=== PATIENT | male | born 1975 | race Caucasian/White ===

== ENCOUNTER 2018-08-27 18:33 | Inpatient (IN) | payer BC, OTHER ==
[~2018-08-27] VITALS: Ht 177.8 cm; Wt 129.6 kg
[2018-08-27 19:55] LABS: BASO # 0.1 10^3/uL (0.0-0.2); BASO % 0.9 % (0.0-1.0); EOS # 0.3 10^3/uL (0.0-0.50); EOS % 3.8 % (0.0-3.0); HEMATOCRIT 44.5 % (42.0-52.0); HEMOGLOBIN 15.6 g/dl (13.5-17.5); LYMPH # 2.4 10^3/uL (1.5-4.5); LYMPH % 28.6 % (24.0-44.0); MEAN CORPUSCULAR HEMOGLOBIN 32.2 pg (27.0-33.0); MEAN CORPUSCULAR HGB CONC 35.1 g/dl (32.0-36.5); MEAN CORPUSCULAR VOLUME 91.9 fl (80.0-96.0); MONO # 1.1 10^3/uL (0.0-0.8); MONO % 13.2 % (0.0-5.0); NEUTROPHILS # 4.4 10^3/uL (1.8-7.7); NEUTROPHILS % 52.9 % (36.0-66.0); PLATELET COUNT, AUTOMATED 309 10^3/uL (150-450); RED BLOOD COUNT 4.84 10^6/uL (4.30-6.10); WHITE BLOOD COUNT 8.2 10^3/uL (4.0-10.0)
[2018-08-27 20:10] LABS: BLOOD UREA NITROGEN 15 MG/DL (7-18); CALCIUM LEVEL 9.2 MG/DL (8.5-10.1); CARBON DIOXIDE LEVEL 26 MEQ/L (21-32); CHLORIDE LEVEL 108 MEQ/L (98-107); CREATININE FOR GFR 0.95 MG/DL (0.70-1.30); GLOMERULAR FILTRATION RATE > 60.0 (>60); GLUCOSE, FASTING 109 MG/DL (70-100); INR 0.91; POTASSIUM SERUM 4.2 MEQ/L (3.5-5.1); PROTHROMBIN TIME 12.4 SECONDS (12.1-14.4); SODIUM LEVEL 142 MEQ/L (136-145)
[2018-08-27] MEDS ORDERED: ISOVUE-370 76% 100ML VIAL (Q9967) As Ordered ONE (21:51)
[2018-08-27 21:57] LABS: C REACTIVE PROTEIN QUANTITATIV 1.96 MG/DL (0.00-0.30)
[2018-08-27 22:24] LABS: ERYTHROCYTE SEDIMENTATION RATE 8 mm/hr (0-15)
--- NOTE | 2018-08-27 23:34 | REPVR ---
EXAM: CT Abdomen and Pelvis With Contrast EXAM DATE/TIME: 08/27/2018 10:38 PM CLINICAL HISTORY: 43 years old, male; Abdominal pain; Localized; Left; Additional info: Left sided abdominal pain; Diverticulitis vs colitis TECHNIQUE: Imaging protocol: Axial computed tomography images of the abdomen and pelvis with intravenous contrast. Coronal and sagittal reformatted images were created and reviewed. Radiation optimization: All CT scans at this facility use at least one of these dose optimization techniques: automated exposure control; mA and/or kV adjustment per patient size (includes targeted exams where dose is matched to clinical indication); or iterative reconstruction. Contrast material: ISOVUE 370; Contrast volume: 100 ml; Contrast route: IV; COMPARISON: No relevant prior studies available. FINDINGS: ABDOMEN: Liver: Normal. No mass. Gallbladder and bile ducts: Normal. No calcified stones. No ductal dilation. Pancreas: Normal. No ductal dilation. Spleen: Normal. No splenomegaly. Adrenals: Normal. No mass. Kidneys and ureters: Normal. No hydronephrosis. Stomach and bowel: Colonic diverticulosis without diverticulitis. Moderate stool in the colon. No abnormal bowel dilatation. No abnormal bowel wall thickening. Appendix: Appendix is normal. PELVIS: Bladder: Unremarkable as visualized. Reproductive: Prostate is normal in size. ABDOMEN and PELVIS: Intraperitoneal space: Normal. No free air. No significant fluid collection. Bones/joints: No acute fracture. No dislocation. Soft tissues: Small bilateral inguinal hernias containing fat. No evidence of incarceration. Vasculature: Normal. No abdominal aortic aneurysm. Lymph nodes: Normal. No enlarged lymph nodes. IMPRESSION: 1. No CT findings to suggest source of left abdominal pain. 2. Colonic diverticulosis without diverticulitis. 3. Small bilateral inguinal hernias containing fat. Electronically signed by: Jazmine Rodriguez On 08/27/2018 23:34:07 PM
[2018-08-28 00:11] LABS: BASO # 0.1 10^3/uL (0.0-0.2); BASO % 0.8 % (0.0-1.0); EOS # 0.2 10^3/uL (0.0-0.50); EOS % 2.1 % (0.0-3.0); HEMATOCRIT 41.6 % (42.0-52.0); HEMOGLOBIN 14.4 g/dl (13.5-17.5); LYMPH # 2.3 10^3/uL (1.5-4.5); LYMPH % 27.4 % (24.0-44.0); MEAN CORPUSCULAR HEMOGLOBIN 32.1 pg (27.0-33.0); MEAN CORPUSCULAR HGB CONC 34.6 g/dl (32.0-36.5); MEAN CORPUSCULAR VOLUME 92.9 fl (80.0-96.0); MONO % 12.4 % (0.0-5.0); NEUTROPHILS # 4.7 10^3/uL (1.8-7.7); NEUTROPHILS % 56.5 % (36.0-66.0); PLATELET COUNT, AUTOMATED 284 10^3/uL (150-450); RED BLOOD COUNT 4.48 10^6/uL (4.30-6.10); WHITE BLOOD COUNT 8.4 10^3/uL (4.0-10.0)
[2018-08-28] MEDS ORDERED: ALEV220T22 PO (01:30)
--- NOTE | 2018-08-28 01:54 | HPEPDOC ---
[facility] Medical History & Physical Date of Admission Aug 28, 2018 Date of Service: Aug 28, 2018 Attending Physician: A History and Physical CHIEF COMPLAINT: GI bleed HISTORY OF PRESENT ILLNESS: Patient is a 43-year-old male with no significant past medical history presented to ER with complaints of bright red blood per rectum. He noted noticing a significant amount of blood with bowel movement since 4 PM yesterday evening and came into the ER. He has no prior history of rectal/gi bleed prior and is generally healthy. He denies any abdominal pain, nausea, vomiting or any associated symptoms. He took 2 aleve x2 today for headache but otherwise nothing out of the ordinary. He has taken medication for occasional illness/headaches in the past without any problems. He was FOBT+ in ER and also noted to have several episodes for further BRBPR. PAST MEDICAL HISTORY: Refer to [facility] PAST SURGICAL HISTORY: None SOCIAL HISTORY: Denies tobacco, alcohol or illicit drug use. FAMILY HISTORY: Mother has emphysema ALLERGIES: Please see below. REVIEW OF SYSTEMS: 10 point review of system negative except as stated in [facility] HOME MEDICATIONS: Please see below. PHYSICAL EXAMINATION: General: No acute distress, Alert Eyes: Normal sclera, EOMI, ARIAS HENT: Atraumatic, neck supple, moist mucous membranes Cardiovascular: Normal rate, normal rhythm. No murmurs appreciated. Pulmonary: Clear to auscultation b/l, no wheezing GI: Soft, nontender, nondistended Skin: Warm and dry Neuro: CN grossly intact. No focal deficits. Strengths equal b/l. Psych: oriented x 3 LABORATORY DATA: See below. MICROBIOLOGY: Please see below. ASSESSMENT AND PLAN: 1. GI Bleed - Suspected NSAID induce as patient has no other known etiology. - Type and screen. - Monitor H/H serial. - Patient is asymptomatic and H/H is relatively stable. Transfuse if needed. - GI consulted, to see in AM. - Patient is made NPO at this time. - Protonix BID. DVT ppx: SCD only due to bleed Code status: Full code Vital Signs Vital Signs Date Time Temp Pulse Resp B/P (MAP) Pulse Ox O2 Delivery O2 Flow Rate FiO2 08/27/18 21:06 100 149/92 (111) 08/27/18 20:38 Room Air 08/27/18 18:33 98.3 18 95 Laboratory Data Labs 24H Laboratory Tests 2 08/27/18 19:43: Immature Granulocyte % (Auto) 0.6, White Blood Count 8.2, Red Blood Count 4.84, Hemoglobin 15.6, Hematocrit 44.5, Mean Corpuscular Volume 91.9, Mean Corpuscular Hemoglobin 32.2, Mean Corpuscular Hemoglobin Concent 35.1, Red Cell Distribution Width 11.5, Platelet Count 309, Neutrophils (%) (Auto) 52.9, Lymphocytes (%) (Auto) 28.6, Monocytes (%) (Auto) 13.2H, Eosinophils (%) (Auto) 3.8H, Basophils (%) (Auto) 0.9, Neutrophils # (Auto) 4.4, Lymphocytes # (Auto) 2.4, Monocytes # (Auto) 1.1H, Eosinophils # (Auto) 0.3, Basophils # (Auto) 0.1, Nucleated Red Blood Cells % (auto) 0.0, Erythrocyte Sedimentation Rate 8, Prothrombin Time 12.4, Prothromb Time International Ratio 0.91, Anion Gap 8, Glomerular Filtration Rate > 60.0, Blood Urea Nitrogen 15, Creatinine 0.95, Sodium Level 142, Potassium Level 4.2, Chloride Level 108H, Carbon Dioxide Level 26, Calcium Level 9.2, C-Reactive Protein, Quantitative 1.96H 08/28/18 00:00: Immature Granulocyte % (Auto) 0.8, White Blood Count 8.4, Red Blood Count 4.48, Hemoglobin 14.4, Hematocrit 41.6L, Mean Corpuscular Volume 92.9, Mean Corpuscular Hemoglobin 32.1, Mean Corpuscular Hemoglobin Concent 34.6, Red Cell Distribution Width 11.6, Platelet Count 284, Neutrophils (%) (Auto) 56.5, Lymphocytes (%) (Auto) 27.4, Monocytes (%) (Auto) 12.4H, Eosinophils (%) (Auto) 2.1, Basophils (%) (Auto) 0.8, Neutrophils # (Auto) 4.7, Lymphocytes # (Auto) 2.3, Monocytes # (Auto) 1.0H, Eosinophils # (Auto) 0.2, Basophils # (Auto) 0.1, Nucleated Red Blood Cells % (auto) 0.0 CBC/BMP Laboratory Tests 08/27/18 19:43 Red Blood Count 4.84, Mean Corpuscular Volume 91.9, Mean Corpuscular Hemoglobin 32.2, Mean Corpuscular Hemoglobin Concent 35.1, Red Cell Distribution Width 11.5, Neutrophils (%) (Auto) 52.9, Lymphocytes (%) (Auto) 28.6, Monocytes (%) (Auto) 13.2 H, Eosinophils (%) (Auto) 3.8 H, Basophils (%) (Auto) 0.9, Neutrophils # (Auto) 4.4, Lymphocytes # (Auto) 2.4, Monocytes # (Auto) 1.1 H, Eosinophils # (Auto) 0.3, Basophils # (Auto) 0.1, Calcium Level 9.2 08/28/18 00:00 Red Blood Count 4.48, Mean Corpuscular Volume 92.9, Mean Corpuscular Hemoglobin 32.1, Mean Corpuscular Hemoglobin Concent 34.6, Red Cell Distribution Width 11.6, Neutrophils (%) (Auto) 56.5, Lymphocytes (%) (Auto) 27.4, Monocytes (%) (Auto) 12.4 H, Eosinophils (%) (Auto) 2.1, Basophils (%) (Auto) 0.8, Neutrophils # (Auto) 4.7, Lymphocytes # (Auto) 2.3, Monocytes # (Auto) 1.0 H, Eosinophils # (Auto) 0.2, Basophils # (Auto) 0.1 Microbiology Microbiology 08/27/18 Gastrointestinal Tract Panel (PCR) - Final, Complete Home Medications Scheduled PRN Naproxen Sodium (Aleve) 220 Mg Tablet, 440 MG PO BID PRN for PAIN Allergies Coded Allergies: No Known Allergies (Unverified , 08/27/18) A-FIB/CHADSVASC A-FIB History Current/History of A-Fib/PAF?: No FIDEL HOWELL MD Aug 28, 2018 01:54
[2018-08-28 02:30] VITALS: BP 130/81
[2018-08-28] MEDS: PANTOPRAZOLE 40MG INJ (PROTONIX) (C9113) IV SCH ×3 (02:50→20:23)
[2018-08-28] MEDS: NS 1,000 ML IV SCH ×2 (02:50→15:45)
[2018-08-28 06:00] VITALS: BP 135/83
[2018-08-28] MEDS ORDERED: MOM 30ML SUSPENSION UDC PO ONE (09:15)
[2018-08-28 10:00] VITALS: BP 145/85
--- NOTE | 2018-08-28 11:20 | IPNPDOC ---
Date Seen The patient was seen on 08/28/18. Progress Note SUBJECTIVE: Patient is a 43-yo male with no significant past medical history who presented to the ER with complaints of bright red blood per rectum. He noted noticing a significant amount of blood with bowel movements since 4:00 pm on 08.27.18 and came into the ER. He has no prior history of rectal/GI bleed prior and is generally healthy. He denies any cp, sob, palpitations abdominal pain, nausea, vomiting or any associated symptoms. He took 2 Aleve x2 on 08.27.18 for headaches but otherwise nothing out of the ordinary. He has taken medication for occasional illness/headaches in the past without any problems. He was FOBT+ in ER and also noted to have several episodes of further BRBPR. Pt hasn't had a full bowel movement since the night of 08.27.18 but reported continued BRBPR and passing blood clots in his stool. Pt has maternal family history of thyroid and breast cancer. Today on examination he feels well, is a little fatigued but otherwise has no complaints. OBJECTIVE PHYSICAL EXAMINATION: VITAL SIGNS: Please see below. SUBJECTIVE: Patient is sitting in bed, pleasant and comfortable. Otherwise patient denies chest pain, shortness breath, nausea, vomiting, fevers, chills. OBJECTIVE PHYSICAL EXAMINATION: VITAL SIGNS: Please see below. GENERAL: Pleasant 43 yo male sitting up in bed awake alert oriented speaking in complete sentences no acute distress HEENT: Moist mucous membranes, EOMI CARDIOVASCULAR: S1 S2 regular no additional heart sounds appreciated RESPIRATORY: Clear to auscultation bilaterally, no wheezing, rales or rhonchi appreciated ABDOMINAL: Bowel sounds presentx4 abdomen soft and nontender, no rebound, rigidity, or guarding., no hepatosplenomegaly or masses appreciated EXTREMITIES: No clubbing cyanosis or edema NEUROLOGICAL: Spontaneously moves all 4 extremities, no focal deficits. PSYCHOLOGICAL: Appropriate affect LABORATORY DATA, IMAGING STUDIES, MICROBIOLOGY: Please see below. ASSESSMENT AND PLAN: This is a 43-year-old male with bleeding per rectum PROBLEMS: 1.Acute blood loss anemia - likely 2/2 GI source - etiology likely 2/2 lower GI source; possibly 2/2 diverticular bleed -H/H stable 14.4/41.6 - Suspected NSAID induced as patient has no other known etiology - Monitor H/H serial; has trended down - Patient is asymptomatic, Transfuse if needed. - GI Panel was negative - CT Abdomen and Pelvis with Contrast: No CT findings to suggest source of left abdominal pain, colonic diverticulosis without diverticulitis, small bilateral inguinal hernias containing fat. - GI consulted. Bowel prep will be started for colonoscopy possibly tonight or tomorrow morning. - Protonix BID -Holding home Alleve DVT ppx: SCD only due to current GI bleed DISPOSITION: Pt is stable. Monitor H/H serial. Will transfuse as needed. Pt planned and prepping for colonoscopy with GI., appreciate their help. VS, I&O, 24H, Fishbone Vital Signs/I&O Vital Signs Date Time Temp Pulse Resp B/P (MAP) Pulse Ox O2 Delivery O2 Flow Rate FiO2 08/28/18 10:00 97.3 82 18 145/85 (105) 97 08/28/18 02:29 Room Air I&O- Last 24 Hours up to 6 AM 08/28/18 06:00 Intake Total 225 ml Output Total 200 ml Balance 25 ml Laboratory Data 24H LABS Laboratory Tests 2 08/27/18 19:43: Immature Granulocyte % (Auto) 0.6, White Blood Count 8.2, Red Blood Count 4.84, Hemoglobin 15.6, Hematocrit 44.5, Mean Corpuscular Volume 91.9, Mean Corpuscular Hemoglobin 32.2, Mean Corpuscular Hemoglobin Concent 35.1, Red Cell Distribution Width 11.5, Platelet Count 309, Neutrophils (%) (Auto) 52.9, Lymphocytes (%) (Auto) 28.6, Monocytes (%) (Auto) 13.2H, Eosinophils (%) (Auto) 3.8H, Basophils (%) (Auto) 0.9, Neutrophils # (Auto) 4.4, Lymphocytes # (Auto) 2.4, Monocytes # (Auto) 1.1H, Eosinophils # (Auto) 0.3, Basophils # (Auto) 0.1, Nucleated Red Blood Cells % (auto) 0.0, Erythrocyte Sedimentation Rate 8, Prothrombin Time 12.4, Prothromb Time International Ratio 0.91, Anion Gap 8, Glomerular Filtration Rate > 60.0, Blood Urea Nitrogen 15, Creatinine 0.95, Sodium Level 142, Potassium Level 4.2, Chloride Level 108H, Carbon Dioxide Level 26, Calcium Level 9.2, C-Reactive Protein, Quantitative 1.96H 08/28/18 00:00: Immature Granulocyte % (Auto) 0.8, White Blood Count 8.4, Red Blood Count 4.48, Hemoglobin 14.4, Hematocrit 41.6L, Mean Corpuscular Volume 92.9, Mean Corpuscular Hemoglobin 32.1, Mean Corpuscular Hemoglobin Concent 34.6, Red Cell Distribution Width 11.6, Platelet Count 284, Neutrophils (%) (Auto) 56.5, Lymphocytes (%) (Auto) 27.4, Monocytes (%) (Auto) 12.4H, Eosinophils (%) (Auto) 2.1, Basophils (%) (Auto) 0.8, Neutrophils # (Auto) 4.7, Lymphocytes # (Auto) 2.3, Monocytes # (Auto) 1.0H, Eosinophils # (Auto) 0.2, Basophils # (Auto) 0.1, Nucleated Red Blood Cells % (auto) 0.0 CBC/BMP Laboratory Tests 08/27/18 19:43 Red Blood Count 4.84, Mean Corpuscular Volume 91.9, Mean Corpuscular Hemoglobin 32.2, Mean Corpuscular Hemoglobin Concent 35.1, Red Cell Distribution Width 11.5, Neutrophils (%) (Auto) 52.9, Lymphocytes (%) (Auto) 28.6, Monocytes (%) (Auto) 13.2 H, Eosinophils (%) (Auto) 3.8 H, Basophils (%) (Auto) 0.9, Neutrophils # (Auto) 4.4, Lymphocytes # (Auto) 2.4, Monocytes # (Auto) 1.1 H, Eosinophils # (Auto) 0.3, Basophils # (Auto) 0.1, Calcium Level 9.2 08/28/18 00:00 Red Blood Count 4.48, Mean Corpuscular Volume 92.9, Mean Corpuscular Hemoglobin 32.1, Mean Corpuscular Hemoglobin Concent 34.6, Red Cell Distribution Width 11.6, Neutrophils (%) (Auto) 56.5, Lymphocytes (%) (Auto) 27.4, Monocytes (%) (Auto) 12.4 H, Eosinophils (%) (Auto) 2.1, Basophils (%) (Auto) 0.8, Neutrophils # (Auto) 4.7, Lymphocytes # (Auto) 2.3, Monocytes # (Auto) 1.0 H, Eosinophils # (Auto) 0.2, Basophils # (Auto) 0.1 Microbiology Microbiology 08/27/18 Gastrointestinal Tract Panel (PCR) - Final, Complete GME ATTESTATION GME ATTESTATION My faculty preceptor for this patient encounter was physically present during the encounter and was fully available. All aspects of the patient interview, examination, medical decision making process, and medical care plan development were reviewed and approved by the faculty preceptor. The faculty preceptor is aware and concurs with the plan as stated in the body of this note and will attest to such by his/her cosignature. ATTENDING NOTE I, Raphael Vidales, have both independently examined this patient as well as reviewed the documentation. I have discussed in detail with the resident the findings and plan of treatment as documented by the resident. I agree with their findings and treatment plan. I will continue to follow the patient and offer further guidance to the patients care as necessary during this hospital stay. EMANUEL BIANCHI OMS-3 Aug 28, 2018 11:20 KALLIE YIP DO Aug 28, 2018 15:17 RAPHAEL VIDALES MD Aug 28, 2018 16:48
[2018-08-28 12:20] LABS: HEMATOCRIT 35.9 % (42.0-52.0)
[2018-08-28 12:37] LABS: HEMOGLOBIN 12.4 g/dl (13.5-17.5)
[2018-08-28 14:00] VITALS: BP 144/81
[2018-08-28] MEDS ORDERED: GOLYTELY SOLN 4000 ML BTL PO ONE (16:00)
[2018-08-28 18:00] VITALS: BP 138/72
[2018-08-28 18:41] LABS: HEMATOCRIT 35.5 % (42.0-52.0)
[2018-08-28 22:00] VITALS: BP 129/84
[2018-08-29 00:14] LABS: HEMATOCRIT 32.9 % (42.0-52.0); HEMOGLOBIN 11.3 g/dl (13.5-17.5)
[2018-08-29 02:00] VITALS: BP 143/79
[2018-08-29] MEDS: NS 1,000 ML IV SCH (03:44)
[2018-08-29 05:52] LABS: MEAN CORPUSCULAR HEMOGLOBIN 31.3 pg (27.0-33.0); MEAN CORPUSCULAR HGB CONC 34.3 g/dl (32.0-36.5); MEAN CORPUSCULAR VOLUME 91.1 fl (80.0-96.0); PLATELET COUNT, AUTOMATED 238 10^3/uL (150-450); RED BLOOD COUNT 3.84 10^6/uL (4.30-6.10); WHITE BLOOD COUNT 5.6 10^3/uL (4.0-10.0)
[2018-08-29 06:00] VITALS: BP 144/77
[2018-08-29 06:14] LABS: BLOOD UREA NITROGEN 7 MG/DL (7-18); CALCIUM LEVEL 7.9 MG/DL (8.5-10.1); CARBON DIOXIDE LEVEL 30 MEQ/L (21-32); CHLORIDE LEVEL 107 MEQ/L (98-107); CREATININE FOR GFR 0.83 MG/DL (0.70-1.30); GLOMERULAR FILTRATION RATE > 60.0 (>60); GLUCOSE, FASTING 93 MG/DL (70-100); MAGNESIUM LEVEL 2.2 MG/DL (1.8-2.4); POTASSIUM SERUM 4.2 MEQ/L (3.5-5.1); SODIUM LEVEL 142 MEQ/L (136-145)
[2018-08-29] MEDS ORDERED: GOLYTELY SOLN 4000 ML BTL PO ONE (07:00)
[2018-08-29] MEDS: PANTOPRAZOLE 40MG INJ (PROTONIX) (C9113) IV SCH (08:35)
[2018-08-29 10:00] VITALS: BP 127/78
--- NOTE | 2018-08-29 10:19 | IPNPDOC ---
Date Seen The patient was seen on 08/29/18. Progress Note SUBJECTIVE: Today on examination he feels well and has no other complaints and he is prepping for colonoscopy with GI, appreciate their help. Patient is NPO starting at 9:00 am today. He is anxious to get the colonoscopy done and over with. OBJECTIVE PHYSICAL EXAMINATION: VITAL SIGNS: Please see below. GENERAL: Patient is sitting in bed, pleasant and comfortable. Otherwise patient denies chest pain, shortness of breath, nausea, vomiting, fever, chills. He is awake, alert, oriented speaking in complete sentences in no acute distress. HEENT: Moist mucous membranes, EOMI CARDIOVASCULAR: S1 S2 regular no additional heart sounds appreciated RESPIRATORY: Clear to auscultation bilaterally, no wheezing, rales or rhonchi appreciated ABDOMINAL: Bowel sounds presentx4 abdomen soft and nontender to light or deep palpation, no rebound, rigidity, or guarding., no hepatosplenomegaly or masses appreciated EXTREMITIES: No clubbing cyanosis or edema NEUROLOGICAL: Spontaneously moves all 4 extremities, no focal deficits. PSYCHOLOGICAL: Appropriate affect LABORATORY DATA, IMAGING STUDIES, MICROBIOLOGY: Please see below. DVT prophylaxis ordered?: SCD only due to current GI bleed ASSESSMENT AND PLAN: This is a 43-year-old male with bleeding per rectum. PROBLEMS: 1. Acute blood loss anemia - likely 2/2 GI source - etiology likely 2/2 lower GI source; possibly 2/2 diverticular bleed - H/H stable but mildly low: 12.0/35.0 on 08.29.18 - Monitor H/H serial; has trended down a bit - Patient is asymptomatic, Transfuse if needed, but not necessary right now - GI Panel was negative - CT Abdomen and Pelvis with Contrast: No CT findings to suggest source of left abdominal pain, colonic diverticulosis without diverticulitis, small bilateral inguinal hernias containing fat. - GI consulted. Bowel prep has been completed for colonoscopy today. - Protonix BID; will transition to Omeprazole on discharge - Will DC Aleve DISPOSITION: Patient is stable. Monitor H/H serial. Will transfuse as needed. Pt planned and prepping for colonoscopy today with GI, appreciate their help. VS, I&O, 24H, Fishbone Vital Signs/I&O Vital Signs Date Time Temp Pulse Resp B/P (MAP) Pulse Ox O2 Delivery O2 Flow Rate FiO2 08/29/18 06:00 98.2 66 18 144/77 (99) 97 08/28/18 02:29 Room Air I&O- Last 24 Hours up to 6 AM 08/29/18 06:00 Intake Total 4625 ml Output Total 1 ml Balance 4624 ml Laboratory Data 24H LABS Laboratory Tests 2 08/29/18 05:28: Nucleated Red Blood Cells % (auto) 0.0, Anion Gap 5L, Glomerular Filtration Rate > 60.0, Blood Urea Nitrogen 7#, Creatinine 0.83, Sodium Level 142, Potassium Level 4.2, Chloride Level 107, Carbon Dioxide Level 30, Calcium Level 7.9L, Magnesium Level 2.2 CBC/BMP Laboratory Tests 08/28/18 11:59 08/28/18 18:05 08/28/18 23:57 08/29/18 05:28 Red Blood Count 3.84 L, Mean Corpuscular Volume 91.1, Mean Corpuscular Hemoglobin 31.3, Mean Corpuscular Hemoglobin Concent 34.3, Red Cell Distribution Width 11.5, Calcium Level 7.9 L Microbiology Microbiology 08/27/18 Gastrointestinal Tract Panel (PCR) - Final, Complete GME ATTESTATION GME ATTESTATION My faculty preceptor for this patient encounter was physically present during the encounter and was fully available. All aspects of the patient interview, examination, medical decision making process, and medical care plan development were reviewed and approved by the faculty preceptor. The faculty preceptor is aware and concurs with the plan as stated in the body of this note and will attest to such by his/her cosignature. ATTENDING NOTE I, Raphael Vidales, have both independently examined this patient as well as reviewed the documentation. I have discussed in detail with the resident the findings and plan of treatment as documented by the resident. I agree with their findings and treatment plan. I will continue to follow the patient and offer further guidance to the patients care as necessary during this hospital stay. EMANUEL BIANCHI OMS-3 Aug 29, 2018 10:19 KALLIE YIP DO Aug 29, 2018 12:15 RAPHAEL VIDALES MD Aug 29, 2018 14:13
[2018-08-29] MEDS ORDERED: LIDOCAINE 2% INJ 100 MG/5 ML SDV (FOR ANES.) As Ordered ONE (12:45)
[2018-08-29] MEDS ORDERED: PROPOFOL 200 MG/20 ML VIAL As Ordered ONE (12:45)
--- NOTE | 2018-08-29 13:42 | ROOR ---
Patient Name: Emery Torres Procedure Date: 08/29/2018 7:32 AM Date of : 1975 Age: 43 Room: [facility] Gender: Male Note Status: Finalized Procedure: Colonoscopy Indications: Hematochezia Providers: Aiden DERAS MD Referring MD: 2. Inpatient 2. Inpatient Requesting Provider: Medicines: Monitored Anesthesia Care Complications: No immediate complications. Procedure: Pre-Anesthesia Assessment: - The heart rate, respiratory rate, oxygen saturations, blood pressure, adequacy of pulmonary ventilation, and response to care were monitored throughout the procedure. The Colonoscope was introduced through the anus and advanced to 5 cm into the ileum. The colonoscopy was performed without difficulty. The patient tolerated the procedure well. The quality of the bowel preparation was good. Findings: The perianal and digital rectal examinations were normal. Internal hemorrhoids were found during retroflexion. The hemorrhoids were moderate. Multiple medium-mouthed diverticula were found in the sigmoid colon. The entire examined colon appeared normal on direct and retroflexion views. The terminal ileum appeared normal. Impression: - Moderate Internal hemorrhoids. - Mild/moderate diverticulosis in the sigmoid colon. - The entire examined colon is normal on direct and retroflexion views. - The examined portion of the ileum was normal. - No specimens collected. Recommendation: - Use fiber, for example Citrucel, Fibercon, Konsyl or Metamucil. - The patient will be observed post-procedure, until all discharge criteria are met. - Return patient to [facility] for possible discharge same day. - Resume regular diet. - Return to primary care physician. - You do not need to follow up with me. Aiden Deras MD Aiden DERAS MD 08/29/2018 1:41:41 PM Electronically signed by Aiden DERAS MD Number of Addenda: 0 Note Initiated On: 08/29/2018 7:32 AM Estimated Blood Loss: Estimated blood loss: none.
[2018-08-29] MEDS ORDERED: OMEP40CA2 PO (14:10)
[2018-08-29 14:15] VITALS: BP 144/84
[2018-08-29 14:35] VITALS: BP 132/80
[2018-08-29 15:22] VITALS: BP 145/90
--- NOTE | 2018-08-30 17:14 | DS.PDOC ---
Discharge Summary General Date of Admission Aug 28, 2018 at 01:43 Date of Discharge 08/29/18 Discharge Summary PROCEDURES PERFORMED DURING STAY: Colonoscopy ADMITTING DIAGNOSES: 1. GI Bleed DISCHARGE DIAGNOSES: 1. 1. Acute blood loss anemia - likely 2/2 GI source - etiology likely 2/2 lower GI source; possibly 2/2 diverticular bleed COMPLICATIONS/CHIEF COMPLAINT: GI Bleed. HOSPITAL COURSE: During the course of his hospital stay his H/H was monitored closely, he was taken to colonoscopy and found to have: - Moderate Internal hemorrhoids. - Mild/moderate diverticulosis in the sigmoid colon. - The entire examined colon is normal on direct and retroflexion views. - The examined portion of the ileum was normal. - No specimens collected. He did not require blood transfusions in house, H/H was downtrending but stable and was improving on day of d/c, he was given Protonix in patient and d/c with omeprazole and should follow up with PCP within 5-7 days of dc. GI panel was negative, no WBC elevation and remained afebrile during stay CRP of 1.96 and normal ESR, infectious etiology was not suspected. DISCHARGE MEDICATIONS: Please see below. ALLERGIES: Please see below. PHYSICAL EXAMINATION ON DISCHARGE: VITAL SIGNS: Please see below. GENERAL: Pleasant 43 yo male laying in bed awake alert oriented speaking in comp lete sentences no acute distress HEENT: Moist mucous membranes, EOMI CARDIOVASCULAR: S1 S2 regular no additional heart sounds appreciated RESPIRATORY: Clear to auscultation bilaterally, no wheezing, rales or rhonchi appreciated ABDOMINAL: Bowel sounds presentx4 abdomen soft and nontender, no rebound, rigidity, or guarding., no hepatosplenomegaly or masses appreciated EXTREMITIES: No clubbing cyanosis or edema NEUROLOGICAL: Spontaneously moves all 4 extremities, no focal deficits. PSYCHOLOGICAL: Appropriate affect LABORATORY DATA: Please see below. IMAGING: CT Ab/pelvis 08.27.[address]: 1[address] No CT findings to suggest source of left abdominal pain. 2. Colonic diverticulosis without diverticulitis. 3. Small bilateral inguinal hernias containing fat PROGNOSIS: favorable ACTIVITY: As tolerated DIET: Increase fiber in diet DISCHARGE PLAN: home follow up w/ PCP within 5-7 days of d/c DISPOSITION: Home, Self-Care. DISCHARGE INSTRUCTIONS: 1. home follow up w/ d PCP within 5-7 days of d/c 2. Remain compliant with treatment plan and medications 3. Return to the ER if you experience any problems. DISCHARGE CONDITION: Stable & Improved TIME SPENT ON DISCHARGE: Greater than 35 minutes. Vital Signs/I&Os Vital Signs Date Time Temp Pulse Resp B/P (MAP) Pulse Ox O2 Delivery O2 Flow Rate FiO2 08/29/18 15:22 97.8 84 18 145/90 (108) 100 08/28/18 02:29 Room Air I&O- Last 24 Hours up to 6 AM 08/30/18 06:00 Intake Total 600 ml Output Total 600 ml Balance 0 ml Microbiology Microbiology 08/27/18 Gastrointestinal Tract Panel (PCR) - Final, Complete Discharge Medications Scheduled Omeprazole (Omeprazole) 40 Mg Capsule.dr, 40 MG PO DAILY Allergies Coded Allergies: No Known Allergies (Unverified , 08/27/18) GME ATTESTATION GME ATTESTATION My faculty preceptor for this patient encounter was physically present during the encounter and was fully available. All aspects of the patient interview, examination, medical decision making process, and medical care plan development were reviewed and approved by the faculty preceptor. The faculty preceptor is aware and concurs with the plan as stated in the body of this note and will attest to such by his/her cosignature. ATTENDING NOTE I, Raphael Vidales, have both independently examined this patient as well as r eviewed the documentation. I have discussed in detail with the resident the findings and plan of treatment as documented by the resident. I agree with their findings and treatment plan. I will continue to follow the patient and offer further guidance to the patients care as necessary during this hospital stay. Time spent on discharge 35 minutes KALLIE YIP DO Aug 30, 2018 17:14 RAPHAEL VIDALES MD Aug 30, 2018 18:30
== END 2018-08-29 15:50 | disposition home or self-care (01) | DRG 244 ==
LOC: M ED 18:33 → M ED INP 08-28 01:43 → M MSPAV 08-28 02:34 → UNDODISIN 08-29 13:50
PROVIDERS: ADMIT Student in an Organized Health Care Education/Training Program; ATTEND Internal Medicine
PROC: 0DJD8ZZ Inspection of Lower Intestinal Tract, Via Natural or Artificial Opening Endoscopic (ICD-10-PCS; principal; 2018-08-29 13:00)
DX: K57.91 Diverticulosis of intestine, part unspecified, without perforation or abscess with bleeding (principal); D62 Acute posthemorrhagic anemia; K64.8 Other hemorrhoids; K40.20 Bilateral inguinal hernia, without obstruction or gangrene, not specified as recurrent

== ENCOUNTER → 2018-09-18 | Outpatient (REF) | payer BC ==
[~2018-09-18] MED LIST: ALEV220T22 PO; OMEP40CA2 PO
[2018-09-18 15:42] LABS: HEMATOCRIT 41.4 % (42.0-52.0); HEMOGLOBIN 14.2 g/dl (13.5-17.5); MEAN CORPUSCULAR HEMOGLOBIN 31.3 pg (27.0-33.0); MEAN CORPUSCULAR HGB CONC 34.3 g/dl (32.0-36.5); MEAN CORPUSCULAR VOLUME 91.2 fl (80.0-96.0); PLATELET COUNT, AUTOMATED 282 10^3/uL (150-450); RED BLOOD COUNT 4.54 10^6/uL (4.30-6.10)
== END ==
LOC: M SFHCPLAZ 14:45
PROVIDERS: ATTEND Family Medicine
DX: K92.2 Gastrointestinal hemorrhage, unspecified (principal)

== ENCOUNTER → 2019-04-03 | Outpatient (CLI) | payer BC ==
[~2019-04-03] MED LIST changes: -OMEP40CA2 PO; +OMEP40CA97 PO
[2019-04-03 07:35] LABS: CHOLESTEROL RISK RATIO 2.925 (<5)
== END ==
LOC: M LAB 06:21
PROVIDERS: ATTEND Family Medicine
DX: Z13.220 Encounter for screening for lipoid disorders (principal)